=== PATIENT | male | born 1975 | race African-American/Black ===

== ENCOUNTER 2019-08-27 16:56 | Observation (INO) | payer BC, OTHER, SELFPAY ==
[2019-08-27 17:29] LABS: #Basophils 0.1 thou/uL (0.0-0.2); #Eosinphils 0.2 thou/uL (0.0-0.7); #Lymphocytes 2.1 thou/uL (1.20-3.40); #Monocytes 0.8 thou/uL (0.11-0.59); %Basophils 0.8 % (0.0-1.0); %Lymphocytes 26.1 % (21.0-51.0); %Monocytes 10.2 % (0.0-10.0); %Neutrophils 60.9 % (42.0-75.0); Hemoglobin 13.8 g/dL (14.0-18.0); Mean Corpuscular HGB CONC 35.3 g/dL (32.0-36.0); Mean Corpuscular Hemoglobin 31.9 pg (27.0-31.0); Mean Corpuscular Volume 90.5 fL (78.0-98.0); Mean Platelet Volume 8.4 fL (7.4-10.4); Platelet Count 203 thou/uL (130-400); RBC Distribution Width 13.2 % (11.5-14.5); Red Blood Cell (RBC) Count 4.32 mill/uL (4.70-6.10); White Blood Cell (WBC) Count 8.1 thou/uL (4.8-10.8)
[2019-08-27 17:53] LABS: ALT (SGPT) 21 U/L (8-55); AST (SGOT) 27 U/L (5-34); Albumin 4.4 g/dL (3.5-5.0); Alkaline Phosphatase 167 U/L (40-110); Anion Gap 14 mmol/L (10-20); BUN (Urea Nitrogen) 16 mg/dL (8.9-20.6); Bilirubin, Total 0.3 mg/dL (0.2-1.2); Calc. Creatinine Clearance 0 mL/min (70-130); Calcium 9.7 mg/dL (7.8-10.44); Carbon Dioxide 26 mmol/L (22-29); Chloride 103 mmol/L (98-107); Estimated GFR-MDRD Greater than 90; Globulin 3.4 g/dL (2.4-3.5); Glucose 104 mg/dL (70-105); Potassium 3.9 mmol/L (3.5-5.1); Protein, Total 7.8 g/dL (6.0-8.3); Sodium 139 mmol/L (136-145)
--- NOTE | 2019-08-27 18:01 | RAD ---
Exam: Chest one view HISTORY:Pain Comparison: None FINDINGS: Lungs: No masses or consolidation. Cardiac silhouette:Accentuated by technique Pulmonary vessels: Normal Pleural Spaces: Clear Pneumothorax: None Osseous abnormalities: None of acuity. IMPRESSION: No focal consolidation.
[2019-08-27] MEDS ORDERED: Ondansetron ODT 4 MG TAB SL PRN (21:52)
[2019-08-27] MEDS ORDERED: Acetaminophen 325 MG TAB PO PRN (21:52)
[2019-08-27] MEDS ORDERED: Ondansetron PF 4 MG/2 ML Vial IVP PRN (21:52)
[2019-08-27 22:33] VITALS: BMI 42.0
[2019-08-28] MEDS ORDERED: Ondansetron ODT 4 MG TAB PO PRN (00:59)
[2019-08-28] MEDS ORDERED: Ondansetron PF 4 MG/2 ML Vial IVP PRN (00:59)
[2019-08-28] MEDS ORDERED: Sodium Chloride 0.9% 1,000 ML IV SCH (01:00)
[2019-08-28] MEDS ORDERED: HumaLOG 300 UNITS/3 ML VIAL SC PRN ×2 (01:12)
[2019-08-28] MEDS ORDERED: Dextrose 50% Abboject 50 ML SYRINGE SLOW IVP PRN (01:12)
[2019-08-28] MEDS ORDERED: Dextrose 5% in Water 1,000 ML IV PRN (01:12)
[2019-08-28 05:17] LABS: #Eosinphils 0.1 thou/uL (0.0-0.7); #Monocytes 0.7 thou/uL (0.11-0.59); #Neutrophils 3.4 thou/uL (1.40-6.50); %Basophils 0.5 % (0.0-1.0); %Eosinophils 2.4 % (0.0-10.0); %Lymphocytes 31.8 % (21.0-51.0); %Monocytes 10.6 % (0.0-10.0); %Neutrophils 54.8 % (42.0-75.0); Hemoglobin 13.4 g/dL (14.0-18.0); Mean Corpuscular HGB CONC 34.1 g/dL (32.0-36.0); Mean Corpuscular Hemoglobin 31.4 pg (27.0-31.0); Mean Corpuscular Volume 92.1 fL (78.0-98.0); Mean Platelet Volume 8.4 fL (7.4-10.4); Platelet Count 182 thou/uL (130-400); RBC Distribution Width 13.5 % (11.5-14.5); Red Blood Cell (RBC) Count 4.27 mill/uL (4.70-6.10); White Blood Cell (WBC) Count 6.3 thou/uL (4.8-10.8)
[2019-08-28 05:39] LABS: Anion Gap 15 mmol/L (10-20); BUN (Urea Nitrogen) 13 mg/dL (8.9-20.6); Calc. Creatinine Clearance 154 mL/min (70-130); Calcium 9.4 mg/dL (7.8-10.44); Carbon Dioxide 23 mmol/L (22-29); Cardiac Risk 6.2 (Less than 4.5); Chloride 106 mmol/L (98-107); Cholesterol 199 mg/dl (< 200 Desired); Estimated GFR-MDRD Greater than 90; Glucose 106 mg/dL (70-105); HDL Cholesterol 32 mg/dL (>60 Neg Risk); LDL Cholesterol, Calculated 136 mg/dL; Potassium 3.9 mmol/L (3.5-5.1); Sodium 140 mmol/L (136-145); Triglycerides 154 mg/dL (Less than 150)
--- NOTE | 2019-08-28 07:04 | HP ---
TIME OF ADMISSION: 0100 hours. PRIMARY CARE PHYSICIAN: Dr. Klein. CHIEF COMPLAINT: Chest pain. HISTORY OF PRESENT ILLNESS: Mr. Galeas is a 44-year-old gentleman, who presents with complaints of chest pain that started at 9 a.m. this morning. He has had 3 separate episodes of pain. Each lasted a few seconds and were in the center of his chest, which he describes as a sudden tight cramping. The patient states pain was intense enough to stop him in his tracks. The first episode was at approximately 9 a.m. this morning. He states he had been walking when all three episodes of pain started. The last one he states occurred while he was in the emergency department and felt as if he had a charley horse across his chest. He states the pain took his breath away and was more severe than it had been earlier in the day. He states it was across his chest. Denies any radiation into his neck or arms. The patient also reports noting an odd sensation in his chest a couple of hours ago, was felt as if his heart had skipped a beat. Denies having issues like this in the past. He does report having a workup for chest pain more than 3 years ago. The patient states he has been doing very well at home in recent days. Denies having any nausea or vomiting. No shortness of breath or palpitations. No cough or hemoptysis. No recent long car rides or flight. States he has been eating exceptionally healthy and has cut carbohydrates out of his diet, which has helped to control his glucose. Reports being very active and works out regularly, but has not had any work out sessions in a week. Denies any trauma or injuries. All other review of systems are negative. In the emergency department, he underwent an EKG, which showed sinus tachycardia with a heart rate of 101. There were no ST changes or T-wave abnormalities. He underwent laboratory studies including a troponin, which was negative. He also had a D-dimer done, which was also negative. LFTs are unremarkable. Renal function is within normal limits. Hemoglobin 13.8 and hematocrit 39.1. Chest x-ray was done showing no evidence of acute intrathoracic abnormality. In the emergency department, he was given 324 mg of aspirin. He is now referred for further investigation. PAST MEDICAL HISTORY: 1. Prediabetes. 2. Hypertension. 3. Obesity. 4. Sleep apnea. PAST SURGICAL HISTORY: 1. Left knee surgery x2. 2. Left foot surgery. SOCIAL HISTORY: The patient denies any alcohol use, tobacco use or illicit drug use. ALLERGIES: PENICILLIN. CURRENT MEDICATIONS: 1. Enalapril. 2. Metoprolol. 3. Metformin. 4. Furosemide. 5. Pravastatin. 6. Famotidine. PHYSICAL EXAMINATION: GENERAL: The patient appears well developed, well nourished, is in no acute distress. VITAL SIGNS: Temperature 98, pulse 75, respirations 18, O2 saturation 96% on room air, and blood pressure 155/76. HEENT: Normocephalic and atraumatic. Pupils are equal, round, reactive to light. Sclerae without icterus. Oropharynx is clear. NECK: Supple. LUNGS: Clear to auscultation bilaterally without any wheezes, rales or rhonchi. CARDIAC: Regular rate and rhythm. There is some left-sided chest wall tenderness to palpation. ABDOMEN: Soft, nontender, and nondistended. Normoactive bowel sounds present. EXTREMITIES: No lower leg swelling or edema. NEUROLOGIC: Alert and oriented x3. SKIN: Without rash or jaundice. INVESTIGATIONS: As mentioned above in HPI. IMPRESSION AND PLAN: Mr. Galeas is a 44-year-old gentleman, who has been referred for management of the following. 1. Acute coronary syndrome, rule out. The patient with 3 episodes of chest pain lasting a few seconds each, which did worsen in intensity and occurred while he was walking. He is slightly tender on examination, but denies any recent injuries or trauma. Chest x-ray is unremarkable. We will continue to trend troponins. We will add BNP to labs as well as magnesium. The patient has had normal stress test in the past, but this was several years ago. We will order a stress test and keep him n.p.o. 2. Hypertension. Monitor blood pressure and resume home medications. 3. Prediabetes. Monitor glucose. Insulin sliding scale ordered. 4. Gastrointestinal prophylaxis with famotidine. 5. Deep venous thrombosis prophylaxis with mechanical SCDs. 6. Code status, full. His surrogate decision maker is his , Chun Galeas. The patient's case to be discussed with attending for further recommendations. Job ID: [id number]
[2019-08-28] MEDS ORDERED: Famotidine/PF 20 mg/2ml Vial SLOW IVP SCH (09:00)
[2019-08-28] MEDS ORDERED: Lisinopril 10 MG TAB PO SCH (09:00)
[2019-08-28] MEDS ORDERED: Furosemide 20 MG TAB PO SCH (09:00)
[2019-08-28 11:44] VITALS: BP 142/76; TEMP 98
--- NOTE | 2019-08-28 11:49 | NM ---
EXAM: Cardiac SPECT HISTORY: Chest pain, hypertension PROTOCOL: Stress only, single isotope TYPE OF STRESS: Pharmacologic stress with Lexiscan was monitored and interpreted by nurse ti Whittington actitioner RADIOPHARMACEUTICAL: 31 mCi technetium 99m-sestamibi injected intravenously FINDINGS: Homogeneous tracer distribution is seen in the myocardial segments on the post stress images. Gated SPECT LVEF: 65% Wall motion exam: Normal IMPRESSION: Normal post stress myocardial perfusion scan.
[2019-08-28] MEDS ORDERED: Regadenoson 0.4 MG/5 ML SYRINGE ONE (19:51)
[2019-08-28] MEDS ORDERED: Simvastatin 5 MG TAB PO SCH (21:00)
[2019-08-28] MEDS ORDERED: FLU VACC QS2019-20(6MOS UP)/PF 60 MCG/0.5 ML SYRINGE IM ONE (21:00)
--- NOTE | 2019-08-29 02:16 | DIS ---
DATE OF ADMISSION: 08/27/2019 DATE OF DISCHARGE: 08/28/2019 DISCHARGE DIAGNOSES: 1. Chest pain. 2. Hypertension. 3. Hyperlipidemia. HOSPITAL COURSE: The patient is a 44-year-old male who initially presented to the hospital with complaints of sharp chest pain. His troponin x3 were negative. EKG, no ST inversions or elevation or depression noted. The patient underwent a stress test which was normal. His D-dimer also was negative. He was noted to have elevated LDL and cholesterol. I have adjusted his medications. 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 PHYSICAL EXAMINATION: VITAL SIGNS: Temperature of 98.0, pulse 93, respirations 18, 97% on room air, blood pressure 142/76. GENERAL: He is awake, alert, and oriented x3. Does not appear in any distress. CV: S1 and S2 present. No murmurs, rubs, or gallops. ABDOMEN: Soft and nontender. Bowel sounds are present x2. EXTREMITIES: No edema. MEDICATIONS: Going to be: 1. Metformin 500 mg daily. 2. Metoprolol 25 mg daily. 3. Lasix 20 mg daily. 4. Pepcid 10 mg daily. 5. Vasotec 10 mg daily. 6. Pravastatin 40 mg at bedtime. FOLLOWUP: The patient will follow up with his primary and he is asked to come into the hospital if his symptoms worsen. Also weight loss has been encouraged to the patient. Job ID: [id number]
[2019-08-29] MEDS ORDERED: metFORMIN 500 MG TAB PO SCH (09:00)
--- NOTE | 2019-08-30 14:05 | EKG ---
Test Reason : Blood Pressure : / mmHG Vent. Rate : 101 BPM Atrial Rate : 101 BPM P-R Int : 140 ms QRS Dur : 082 ms QT Int : 342 ms P-R-T Axes : 069 001 -13 degrees QTc Int : 443 ms Sinus tachycardia Minimal voltage criteria for LVH, may be normal variant Nonspecific T wave abnormality Abnormal ECG Confirmed by JUMA FELIX ([id number]), editor producer JOSE NICHOLSON ([id number]) on 08/30/2019 2:05:08 PM Referred By: Confirmed By:JUMA FELIX
== END 2019-08-28 14:34 | disposition home or self-care (01) ==
LOC: ERS 16:56 → 2SW 21:50
PROVIDERS: ADMIT Internal Medicine; ATTEND Internal Medicine
DX: R07.89 Other chest pain (principal); R73.03 Prediabetes; I10 Essential (primary) hypertension; G47.30 Sleep apnea, unspecified; J45.909 Unspecified asthma, uncomplicated; E66.9 Obesity, unspecified; Z68.41 Body mass index [BMI] 40.0-44.9, adult; Z79.84 Long term (current) use of oral hypoglycemic drugs; Z79.899 Other long term (current) drug therapy; Z88.0 Allergy status to penicillin
CPT/HCPCS: 36415; 36416; 71045; 78452; 80048; 80053; 80061; 83735; 83880; 84484; 85025; 85379; 93005; 93017; 96360; 96361; A9500; G0378; J2785